=== PATIENT | female | born 1995 ===

== ENCOUNTER 2025-05-05 10:26 | Emergency (ER) | payer BC ==
[~2025-05-05] VITALS: Ht 165.1 cm; Wt 102.0 kg
[2025-05-05 11:36] LABS: BASOPHILS ABSOLUTE AUTO 0.07 K/mm3 (0.00-0.23); BASOPHILS PERCENT AUTO 1 % (0-2); EOSINOPHILS ABSOLUTE AUTO 0.23 K/mm3 (0.00-0.68); EOSINOPHILS PERCENT AUTO 2 % (0-6); Hematocrit 44.4 % (33.0-51.0); Hemoglobin 15.4 g/dL (11.5-16.0); IMMATURE GRAN ABSOLUTE AUTO 0.04 K/mm3 (0.00-0.10); IMMATURE GRAN PERCENT AUTO 0 % (0-1); LYMPHOCYTES ABSOLUTE AUTO 3.87 K/mm3 (0.84-5.20); LYMPHOCYTES PERCENT AUTO 41 % (21-46); MONOCYTES ABSOLUTE AUTO 0.91 K/mm3 (0.16-1.47); MONOCYTES PERCENT AUTO 10 % (4-13); Mean Corpuscular HGB Conc 34.7 g/dL (31.5-36.5); Mean Corpuscular Volume 89 fL (80-100); NEUTROPHILS ABSOLUTE AUTO 4.27 K/mm3 (1.96-9.15); NEUTROPHILS PERCENT AUTO 46 % (41-73); NRBC ABSOLUTE 0.00 K/mm3 (0.00-0.02); NRBC Auto 0.0 /100 WBC (0.0-0.2); RDW Coefficient Variation 12.7 % (11.7-14.2); RDW Standard Deviation 41.4 fL (35.1-46.3)
[2025-05-05 11:39] LABS: Platelet Count 285 K/mm3 (150-400)
[2025-05-05 11:55] LABS: Alanine Aminotransfer (ALT/SGP 267.0 U/L (12-78); Albumin, Blood 4.1 g/dL (3.4-5.0); Albumin/Globulin Ratio 0.9 (0.8-1.8); Anion Gap 6.0 mmol/L (3-11); Aspartate Aminotrans (AST/SGOT 126.0 U/L (12-37); Bilirubin, Total 0.6 mg/dL (0.1-1.0); Blood Urea Nitrogen 11.0 mg/dL (8-24); CO2, Blood 29.0 mmol/L (21-32); Calcium, Blood 9.5 mg/dL (8.5-10.1); Chloride, Blood 104.0 mmol/L (98-108); Creatinine, Blood 0.74 mg/dL (0.40-1.00); Globulin, Blood 4.7 g/dL (2.2-4.0); Glucose, Blood 99.0 mg/dL (70-99); Potassium, Blood 5.2 mmol/L (3.5-5.5); Sodium, Blood 134.0 mmol/L (136-145); Total Protein, Blood 8.8 g/dL (6.4-8.2)
[2025-05-05] MEDS ORDERED: Ketorolac Tromethamine 15mg Vial IV ONE (12:55)
== END 2025-05-05 14:29 | disposition home or self-care (01) ==
LOC: ER 10:26
PROVIDERS: Student in an Organized Health Care Education/Training Program
DX: R10.31 Right lower quadrant pain (principal); J45.909 Unspecified asthma, uncomplicated
CPT/HCPCS: 74177; 80053; 81025; 83690; 85025; 96374-59; 99284-25; J1885; Q9967